=== PATIENT | female | born 1965 | race Caucasian/White ===

== ENCOUNTER → 2017-04-18 | Outpatient (CLI) | payer BC, OTHER | LOC: RAD 08:34 → ULTRA 08:34 | DX: N64.4 Mastodynia (principal); R05 Cough; N63 Unspecified lump in breast ==

== ENCOUNTER → 2017-05-21 | Outpatient (CLI) | payer BC, OTHER | LOC: RAD 11:06 | DX: J44.9 Chronic obstructive pulmonary disease, unspecified (principal) ==

== ENCOUNTER → 2017-07-10 | Outpatient (CLI) | payer BC, OTHER | LOC: CAT 08:16 | DX: R10.32 Left lower quadrant pain (principal) ==

== ENCOUNTER → 2017-10-08 | Outpatient (CLI) | payer BC, OTHER | LOC: ULTRA 08:32 | DX: N64.4 Mastodynia (principal) ==